=== PATIENT | female | born 1975 | race Caucasian/White ===

== ENCOUNTER 2019-06-01 06:45 | Emergency (ER) | payer MEDICAID, SELFPAY ==
[2019-06-01 06:47] VITALS: BP 135/85; PULSE 84; RESP 20; TEMP 36.8; O2SAT 99; BMI 30.1
--- NOTE | 2019-06-01 07:14 | ED.VISSUMM ---
- ER Visit Summary Date of Service: 06/01/19 Chief Complaint: Bilateral hip and leg pain History of Present Illness: The patient is a 43 F history of chronic lower extremity pain bilaterally. She states is been ongoing for the last 10 years. She sees multiple physicians including emergency preparedness manager and painting worker through the [facility]. She denies any falls or trauma. Or any fever. Says she is camping locally. Is gotten little sleep and it causes her pain to exacerbate. This is nothing new or different she has had this for years. She has a pending hip replacement which she says is secondary to osteoarthritis. Physical Examination: Middle-aged woman complaining of pain. Vital signs are stable afebrile. HEENT exam unremarkable. Lungs clear to auscultation. Heart regular rhythm no murmur rate about 85. Abdomen soft and nontender. Patient is moving all 4 extremities. Neurovascularly intact. There is no history of swelling, redness or warmth to her lower extremities. She is able to flex and extend at both hips knees and ankles. She can bear weight. There is no signs of a septic joints or acute trauma. She has palpable DP pulses. Dorsi and plantarflexion is intact. Test Results: None Emergency Department Course and Treatment: Patient is requesting Dilaudid. She sees pain management. I explained to her this is not her typical course of treating chronic pain in this emergency department. She will be given 2 [place] here for pain. And follow-up with her specialist. Treatment Plan: She has Mobic and Lyrica for pain. Otherwise follow-up with her physicians. Disposition: Discharge Impression: Acute on chronic lower extremity pain History of osteoarthritis History of chronic pain This note was generated with [employer] dictation software. It may contain incorrect words, spelling, and punctuation that were not noted in review of the chart prior to signing
--- NOTE | 2019-06-01 07:16 | ED.DEP ---
ED Disposition - Plan for ED Patient: Disposition: Home or Assisted Living Instructions: ED Chronic Pain Additional Instructions: Continue your Mobic and Lyrica. Follow-up with your pain management doctor.
[2019-06-01] MEDS: HYDROcodone Bitartrate/Apap 5/325 Tablet PO (07:23)
== END 2019-06-01 08:05 | disposition home or self-care (01) ==
LOC: ED 07:21
PROVIDERS: Emergency Provider Emergency Medicine
DX: M79.605 Pain in left leg (principal); M79.604 Pain in right leg; G89.29 Other chronic pain; M19.90 Unspecified osteoarthritis, unspecified site; Z79.899 Other long term (current) drug therapy
CPT/HCPCS: 99283

== ENCOUNTER 2023-02-12 17:35 | Emergency (ER) | payer OTHER, MEDICAID, SELFPAY ==
[2023-02-12 17:36] VITALS: BP 132/90; PULSE 67; RESP 16; TEMP 36.6; O2SAT 100; BMI 35.9
--- NOTE | 2023-02-12 18:05 | RAD_ITS ---
STUDY: X-RAY - LEFT FOOT CLINICAL: Female, 47 years old. injury TECHNIQUE: 3 view(s) of the foot. COMPARISON: None. FINDINGS: Large plantar spur, otherwise negative talus, calcaneus, and tarsal bones. Normal visualized subtalar, talonavicular, calcaneocuboid, tarsal and tarsometatarsal articulations. Normal metatarsi. Normal metatarsophalangeal joint of the great toe. Normal tibial and fibular sesamoid bones. Normal interphalangeal joint of the great toe. Normal phalanges of the great toe. Normal second through fifth metatarsophalangeal joints. Normal interphalangeal joints and phalanges of the lesser toes. The soft tissue structures are unremarkable. There is no demonstrated fracture. RAD/Foot min 3 Views IMPRESSION: No definite acute or significant abnormality seen. Electronically Signed: Lowell Estrada MD at 18:22 EDT ,
--- NOTE | 2023-02-12 18:08 | ED.VIS.LOWEX ---
HPI History of Present Illness Chief Complaint: Lower Extremity Injury Informant: patient Narrative Narrative: Reports worsening swelling pain left foot this morning. Had a fall 3 days ago while coming off the porch. No head injuries. Reports went to [facility] with x-rays that were negative states was put on tramadol that is not helping. Denies new injuries. [facility] Medical History Brain aneurysm Hypertension Lupus Home Medications hydrocodone-acetaminophen 5-325mg 5mg-325mg 1 tab PO Q6H PRN PRN Pain 3 days #10 TABLETS 02/12/23 [Rx Last Taken Unknown] ibuprofen 600 mg tablet 600 mg PO Q6H PRN PRN pain #20 TABLETS 02/12/23 [Rx Last Taken Unknown] losartan 50 mg tablet 50 mg PO DAILY 02/12/23 [History Last Taken Unknown] magnesium 200 mg tablet 200 mg PO DAILY 02/12/23 [History Last Taken Unknown] pregabalin 150 mg capsule 150 mg PO BID 02/12/23 [History Last Taken Unknown] sertraline 100 mg tablet 200 mg PO DAILY 02/12/23 [History Last Taken Unknown] Allergy/AdvReac Type Severity Reaction Status Date / Time erythromycin base Allergy Anaphylaxis Verified 02/12/23 17:35 Sulfa (Sulfonamide Allergy Anaphylaxis Verified 02/12/23 17:35 Antibiotics) Surgical History S/P hip replacement Social History Smoking Status: Current every day smoker tobacco type: cigarettes alcohol intake: never substance use type: does not use caffeine: Yes what type of physical activity do you participate in: none seatbelt use: always do you feel safe at home: Yes ROS ROS ED Constitutional Constitutional ED: Denies chills, fever(s) or sweats Eyes Eyes: Denies change in vision ENT ENT ED: Denies dysphagia or sore throat Cardiovascular Cardiovascular: Denies chest pain, leg edema, palpitations or racing heartbeat Respiratory/Chest Respiratory/Chest: Denies cough, dyspnea or dyspnea on exertion Gastrointestinal Gastrointestinal: Denies abdominal pain, diarrhea, nausea or vomiting Genitourinary Genitourinary ED: Denies dysuria, hematuria or urinary frequency Musculoskeletal Musculoskeletal: Reports extremity pain; Denies back pain or neck pain Integumentary Denies rash or wounds Neurologic Neurologic: Denies headache(s), paresthesias or weakness EXAM Physical Exam Const Vital Signs: 02/12/23 17:36 Temperature 97.8 F Temperature Source Temporal Pulse Rate 67 Respiratory Rate 16 Blood Pressure 132/90 H Blood Pressure Mean 104 Pulse Ox 100 Oxygen Delivery Method Room Air Positive well nourished and well developed General Appearance ED: well developed and NAD HEENT Reports moist mucous membranes normocephalic and atraumatic Eyes PERRL, EOMs intact bilaterally and conjunctivae normal General Eye ED: Yes normal appearance of both eyes Neck no lymphadenopathy and supple General: Negative for tenderness Chest Wall Chest: Negative for tenderness Resp normal respiratory effort and normal air movement Effort and Inspection: symmetric chest movement; Negative for respiratory distress Cardio regular rate, regular rhythm and no murmurs Peripheral Pulses: pulses 2+ throughout GI normal to inspection, nondistended, normoactive bowel sounds and non-tender Palpation: Negative for guarding or rebound tenderness present Back/Spine no CVA tenderness and no thoracic nor lumbar tenderness Extremity Extremity Narrative: Left lower extremity: No knee or ankle tenderness there is tenderness lateral midfoot with swelling. Skin intact. Neuro vas intact distally. General Extremety ED: Negative for edema or tenderness General Extremity: Negative for edema Neuro oriented x3 and no sensory deficits noted Sensorium / Orientation: awake and alert Skin no rashes or lesions noted and no wounds MDM MDM MDM Narrative Medical decision making narrative: Interventions / MDM: Differential diagnosis: Left foot sprain, left foot fracture Diagnosis considered but do not suspect: N/A My EKG interpretation: N/A Imaging independently reviewed and interpreted by myself: Left foot x-ray 3 views: No fracture External documents reviewed: N/A Test considered but not ordered:N/A ED course: Patient for increasing swelling today from injury 3 days ago. Unable to see imaging from outside facility however new symptoms therefore reimaging was obtained and negative. She was treated with hydrocodone in the ED. OARRS report no 6 tabs of tramadol. There is no overlap. Should be written for ibuprofen and short course hydrocodone use as needed. Marco Antonio wrap provided. She still has her postop shoe and crutches. She will follow-up with her PCP for outpatient evaluation and follow-up. All questions were answered. Re-evaluation: stable Disposition discussed with patient/family/significant other: Patient Case discussed with consulting clinician: N/A Radiography Diagnostic Testing: Clinical Impression(s) from Imaging Studies Foot X-Ray 02/12/23 18:05 IMPRESSION: No definite acute or significant abnormality seen. Electronically Signed: Lowell Estrada MD at 18:22 EDT , Discharge Plan Triage Chief Complaint: Lower Extremity Injury ED Provider: Janak Willis Dx/Rx/DC Orders Clinical Impression: Sprain of left foot, Left foot pain Instructions: ED Foot Sprain Prescriptions: New ibuprofen 600 mg tablet 600 mg PO Q6H PRN PRN (Reason: pain) Qty: 20 0RF hydrocodone-acetaminophen [hydrocodone-acetaminophen] 5-325 mg tablet 1 tab PO Q6H PRN PRN (Reason: Pain) 3 Days Qty: 10 0RF No Action losartan 50 mg tablet 50 mg PO DAILY Label Comments: Take 1 tablet by mouth once daily. sertraline 100 mg tablet 200 mg PO DAILY Label Comments: Take 2 tablets by mouth once daily. magnesium 200 mg Tablet 200 mg PO DAILY pregabalin 150 mg capsule 150 mg PO BID Primary Care Provider: Iron Dao Referrals: Iron Dao MD [Primary Care Provider] - 1 Week if not improving Activity Restrictions/Additional Instructions: Left foot x-ray is negative for any fractures. Use Marco Antonio wrap continue your postop shoe and crutches. Medications as prescribed. Follow-up with your doctor if not improving in 1 week. Disposition Disposition: Home, Self Care Discharge Date/Time: 02/12/23 18:54
[2023-02-12] MEDS: HYDROcodone Bitartrate/Apap 5/325 Tablet PO (18:10)
== END 2023-02-12 18:54 | disposition home or self-care (01) ==
PROVIDERS: Emergency Provider Emergency Medicine; Visit Provider Emergency Medicine
DX: S93.602A Unspecified sprain of left foot, initial encounter (principal); M79.672 Pain in left foot; I10 Essential (primary) hypertension; F17.210 Nicotine dependence, cigarettes, uncomplicated; Z79.899 Other long term (current) drug therapy; W19.XXXA Unspecified fall, initial encounter
CPT/HCPCS: 73630; 99282

== ENCOUNTER 2023-05-21 17:46 | Emergency (ER) | payer OTHER, MEDICAID, SELFPAY ==
[2023-05-21 17:48] VITALS: BP 149/87; PULSE 84; RESP 14; TEMP 36.7; O2SAT 97; BMI 41.4
--- NOTE | 2023-05-21 18:53 | CT_ITS ---
STUDY: CT ABDOMEN AND PELVIS WITHOUT CONTRAST REASON FOR EXAM: Female, 47 years old. Kidney Stone RADIATION DOSAGE (If Supplied By Facility): CTDIvol = ( 23.81 ) mGy, DLP = ( 1314.76 ) mGycm TECHNIQUE: Transaxial images were obtained from the dome of the diaphragm to the symphysis pubis without oral contrast, and without intravenous contrast. Sagittal and coronal images were reconstructed. Individualized dose optimization techniques were used for this CT. COMPARISON: None. FINDINGS: The visualized lung bases are unremarkable. The visualized portions of the heart are within normal limits. There is decreased attenuation of the liver consistent with steatosis. There is hepatomegaly. There is non-visualization of the gallbladder, which may be secondary to either contraction or a prior cholecystectomy. Normal spleen. Normal pancreas. Normal bilateral adrenal glands. There is no acute abnormalities of the kidneys. There is a 3 mm nonobstructing mid right renal stone. There is a 1 mm nonobstructing right lower pole renal stone. There is a punctate nonobstructing stone of the left upper pole. No hydronephrosis. Evaluation of the GI tract is limited by absence of oral contrast. Cannot exclude stomach wall thickening. No dilated loops of bowel or evidence for obstruction. Cannot exclude segmental thickening of the meadows of the small or large bowel. Cannot exclude enteritis or colitis. Moderate diffuse fecal retention. Appendix within normal limits. Normal abdominal aorta. Normal inferior vena cava. Normal retroperitoneum. Evaluation of the pelvis limited by metal artifact from bilateral hip arthroplasties. Grossly normal rectum and bladder. Uterus is absent. Normal abdominal wall. Normal osseous structures. CT/Abdomen/Pelvis without Cont IMPRESSION: Limited as above. Nonobstructing bilateral renal stones. Electronically Signed: Lowell Estrada MD at 20:37 EDT ,
[2023-05-21] MEDS: Ondansetron 4 MG/2 ML Vial IV (19:00)
[2023-05-21] MEDS: Ketorolac 15 MG/ML Vial IV (19:00)
[2023-05-21 19:01] LABS: Bacteria 0 SEEN /hpf (None Seen); Mucous, Urine 0 SEEN /hpf (<or=2+)
[2023-05-21] MEDS: Morphine 4 MG/ML Syringe IV ×2 (19:01→20:21)
[2023-05-21 19:08] LABS: Color, Urine Yellow (Yellow); Glucose, Dipstick Normal (Normal); Ketone-Dipstick 15 mg/dl (Negative); Leukocyte Esterase-Dipstick 100 /ul (Negative); Nitrite-Dipstick Negative (Negative); Occult Blood-Urine 25 /ul (Negative); Protein-Dipstick 30 mg/dl (Negative); Urine Bilirubin Dipstick Negative (Negative); Urine Clarity Sl. Cloudy (Clear); Urine Urobilinogen 1 mg/dl (Normal)
[2023-05-21 19:15] LABS: Anion Gap 7 (5-15); BUN 12 mg/dL (7-18); BUN/Creat Ratio 8.9 RATIO (10-20); Calcium,Total 8.8 mg/dL (8.5-10.1); Chloride 105 mmol/L (98-107); Creatinine, Serum 1.35 mg/dL (0.55-1.02); EST Glomerular Filtration Rate 45 mL/min (>60); Est Glom Filt Rate - Afr Amer 54 mL/min (>60); Estimated Creatinine Clearance 56.31 ml/min; Glucose 82 mg/dL (74-106); Potassium 3.9 mmol/L (3.5-5.1); Sodium Level 139 mmol/L (136-145)
[2023-05-21 19:20] LABS: Amorphous Sediment 1+ PHOS; Red Blood Cells-Urine 0-5 SEEN /hpf (0-5); Squamous Epithelial Cells - UA 10-25 SEEN /hpf (5-10); White Blood Cells 5-10 SEEN /hpf (0-5)
--- NOTE | 2023-05-21 19:22 | EDS_ITS ---
HPI HPI - Female History of Present Illness Chief Complaint: Flank Pain Narrative Narrative: Patient presenting with C and right flank pain. She is concerned she has UTI or kidney stone. She has associated nausea but no vomiting. Pain is sharp and intermittent. Not concern for . Patient recently admitted to the hospital at [facility] and feels that her right ankle is medical with a blood clot. She has some pain in the left forearm. No history of DVT/PE. PFSH [facility] Medical History Brain aneurysm Hypertension Lupus Home Medications
--- NOTE | 2023-05-21 19:22 | ED.VIS.FEGU ---
HPI HPI - Female History of Present Illness Chief Complaint: Flank Pain Narrative Narrative: Patient presenting with C and right flank pain. She is concerned she has UTI or kidney stone. She has associated nausea but no vomiting. Pain is sharp and intermittent. Not concern for . Patient recently admitted to the hospital at [facility] and feels that her right ankle is medical with a blood clot. She has some pain in the left forearm. No history of DVT/PE. PFSH PFSH Medical History Brain aneurysm Hypertension Lupus Home Medications hydrocodone-acetaminophen 5-325mg 5mg-325mg 1 tab PO Q6H PRN PRN Pain 3 days #10 TABLETS 02/12/23 [Rx Last Taken Unknown] ibuprofen 600 mg tablet 600 mg PO Q6H PRN PRN pain #20 TABLETS 02/12/23 [Rx Last Taken Unknown] losartan 50 mg tablet 50 mg PO DAILY 02/12/23 [History Last Taken Unknown] magnesium 200 mg tablet 200 mg PO DAILY 02/12/23 [History Last Taken Unknown] pregabalin 150 mg capsule 150 mg PO BID 02/12/23 [History Last Taken Unknown] sertraline 100 mg tablet 200 mg PO DAILY 02/12/23 [History Last Taken Unknown] Allergy/AdvReac Type Severity Reaction Status Date / Time erythromycin base Allergy Anaphylaxis Verified 05/21/23 17:47 Sulfa (Sulfonamide Allergy Anaphylaxis Verified 05/21/23 17:47 Antibiotics) Surgical History History of hysterectomy S/P hip replacement Social History Smoking Status: Former smoker alcohol intake: never substance use type: does not use caffeine: Yes what type of physical activity do you participate in: none seatbelt use: always do you feel safe at home: Yes ROS ROS ED Constitutional Constitutional ED: Denies chills, fever(s) or sweats Eyes Eyes: Denies blurry vision or change in vision ENT ENT ED: Denies ear pain, rhinorrhea or sore throat Cardiovascular Cardiovascular: Denies chest pain, palpitations or racing heartbeat Respiratory/Chest Respiratory/Chest: Denies cough, dyspnea or sputum Gastrointestinal Gastrointestinal: Reports abdominal pain; Denies constipation, diarrhea or vomiting Genitourinary Genitourinary ED: Reports dysuria and urinary frequency; Denies hematuria Musculoskeletal Musculoskeletal: Denies arthralgias, myalgias or neck pain Integumentary Reports other Details: Bruising left distal forearm on the volar surface ; Denies abscess, Abrasions or rash Neurologic Neurologic: Denies headache(s), paresthesias or weakness Psychiatric Psychiatric: Denies anxiety, depression, suicidal ideation or suicidal thoughts Endocrine Endocrinology: Denies polydipsia or polyuria EXAM Physical Exam Const Vital Signs: 05/21/23 17:48 05/21/23 20:10 05/21/23 21:02 Temperature 98.1 F Temperature Source Temporal Pulse Rate 84 68 61 Respiratory Rate 14 18 18 Blood Pressure 149/87 H 124/69 H 130/69 H Blood Pressure Mean 107 87 Pulse Ox 97 98 96 Oxygen Delivery Method Room Air Room Air Positive well nourished General Appearance ED: NAD HEENT Reports moist mucous membranes Eyes PERRL and EOMs intact bilaterally Chest Wall inspection of chest normal Resp normal respiratory effort and clear to auscultation bilaterally Cardio regular rate and regular rhythm GI normal to inspection, nondistended, normoactive bowel sounds Back/Spine no CVA tenderness Extremity Extremity Narrative: There are some bruising and swelling noted over the distal forearm on the volar surface. No obvious cords palpated. It is edematous and mildly tender. Neuro oriented x3 Sensorium / Orientation: alert Motor Exam: strength 5/5 throughout Psych mental status grossly normal Skin Skin Narrative: As described above MDM MDM MDM Narrative Medical decision making narrative: Patient presenting with flank pain. Differential includes UTI, kidney stone, pyelonephritis, colitis, lumbar strain. She also wants her left forearm assessed. There are some bruising and swelling over the left distal forearm but the IV was in the left AC. Counseled her we do not have anybody that can do this DVT study today in the hospital and I offered to give her outpatient follow-up and she declines. I did obtain a CBC and BMP to assess white blood cell count, hemoglobin and platelets as well as renal function electrolytes. Patient medicated with morphine, Zofran, Toradol. Urinalysis was obtained to assess for UTI or occult blood. CT of the abdomen pelvis without contrast will be obtained to assess for kidney stone versus pyelonephritis. Urinalysis negative for infection. CBC and BMP unremarkable with exception of a creatinine 1.[address] of the abdomen pelvis without contrast was obtained to rule out kidney stone this was negative except for constipation. Patient counseled on findings. Patient to take MiraLAX at home. I did again offer duplex of the upper extremity tomorrow and she declines. Impression: 1. Left upper extremity edema 2. Right flank pain 3. Constipation 4. Urinary frequency Lab Data Attestation: I reviewed the patient's lab results. Labs: Laboratory Results - last 24 hr 05/21/23 18:15 WBC 10.2 RBC 4.29 Hgb 13.6 Hct 41.2 MCV 96.0 MCH 31.7 MCHC 33.0 RDW Std Deviation 49.2 H RDW Coeff of Vera 14.1 Plt Count 291 MPV 10.0 Immature Gran % (Auto) 0.400 Neut % (Auto) 66.3 Lymph % (Auto) 22.3 [place] % (Auto) 8.5 Eos % (Auto) 2.0 Baso % (Auto) 0.5 Absolute Neuts (auto) 6.8 Absolute Lymphs (auto) 2.28 Nucleated RBC % 0 Sodium 139 Potassium 3.9 Chloride 105 Carbon Dioxide 27.0 Anion Gap 7 BUN 12 Creatinine 1.35 H Estim Creat Clear Calc 56.31 Est GFR (MDRD) Af Amer 54 L Est GFR (MDRD) Non-Af 45 L BUN/Creatinine Ratio 8.9 L Glucose 82 Calcium 8.8 Urine Color Yellow Urine Clarity Sl. Cloudy Urine pH 7.0 Ur Specific [place] 1.010 Urine Protein 30 H Urine Glucose (UA) Normal Urine Ketones 15 H Urine Occult Blood 25 H Urine Nitrite Negative Urine Bilirubin Negative Urine Urobilinogen 1 H Ur Leukocyte Esterase 100 H Urine RBC 0-5 SEEN Urine WBC 5-10 SEEN Ur Squamous Epith Cells 10-25 SEEN Amorphous Sediment 1+ PHOS Urine Bacteria 0 SEEN Urine Mucus 0 SEEN Radiography Diagnostic Testing: Clinical Impression(s) from Imaging Studies Abdomen/Pelvis CT 05/21/23 18:53 IMPRESSION: Limited as above. Nonobstructing bilateral renal stones. Electronically Signed: Lowell Estrada MD at 20:37 EDT , Discharge Plan Triage Chief Complaint: Flank Pain ED Provider: Randal Barrientos Dx/Rx/DC Orders Instructions: ED Constipation (Adult), ED Flank Pain, Uncertain Cause Prescriptions: No Action losartan 50 mg tablet 50 mg PO DAILY Patient Comments: Take 1 tablet by mouth once daily. sertraline 100 mg tablet 200 mg PO DAILY Patient Comments: Take 2 tablets by mouth once daily. magnesium 200 mg Tablet 200 mg PO DAILY pregabalin 150 mg capsule 150 mg PO BID ibuprofen 600 mg tablet 600 mg PO Q6H PRN PRN (Reason: pain) Qty: 20 0RF hydrocodone-acetaminophen [hydrocodone-acetaminophen] 5-325 mg tablet 1 tab PO Q6H PRN PRN (Reason: Pain) 3 Days Qty: 10 0RF Primary Care Provider: Iron Dao Referrals: Iron Dao MD [Primary Care Provider] - Disposition Disposition: Home, Self Care Discharge Date/Time: 05/21/23 21:10
[2023-05-21 19:27] LABS: Absolute Lymphocyte Count 2.28 X10^3/uL (0.83-4.51); Absolute Neutrophil Count 6.8 X10^3/uL (2.0-7.7); Basophil# 0.05 X10^3/uL; Basophil% 0.5 % (0-1); Hematocrit 41.2 % (37-47); Hemoglobin 13.6 g/dL (12.0-15.0); Lymphocyte # 2.28 X10^3/ul (0.83-4.51); Lymphocyte % 22.3 % (19-41); Mean Corpuscular Hgb 31.7 pg (27.0-32.0); Monocyte# 0.87 X10^3/uL; Monocyte% 8.5 % (0-10); NRBC Flagged by Analyzer 0 % (0-5); Neutrophil % 66.3 % (47-70); Platelet Count 291 K/mm3 (150-450); RBC Distribution Width CV 14.1 % (11.6-14.6); RBC Distribution Width SD 49.2 fl (35.1-43.9); Red Blood Count 4.29 M/mm3 (4.2-5.4); White Blood Count 10.2 K/mm3 (4.4-11.0)
[2023-05-21 20:10] VITALS: BP 124/69; PULSE 68; RESP 18; O2SAT 98
[2023-05-21] MEDS: 0.9% Normal Saline 1,000 ML 999 ML IV (20:54)
[2023-05-21 21:02] VITALS: BP 130/69; PULSE 61; RESP 18; O2SAT 96
== END 2023-05-21 21:10 | disposition home or self-care (01) ==
PROVIDERS: Emergency Provider Student in an Organized Health Care Education/Training Program; Visit Provider Student in an Organized Health Care Education/Training Program
DX: M79.89 Other specified soft tissue disorders (principal); R10.9 Unspecified abdominal pain; K59.00 Constipation, unspecified; R35.0 Frequency of micturition; Z87.891 Personal history of nicotine dependence
CPT/HCPCS: 74176; 80048; 81001; 85025; 96374; 96375; 96376; 99282; J7030; J7050; A4216; J2405

== ENCOUNTER 2023-12-04 19:01 | Emergency (ER) | payer OTHER, SELFPAY ==
[2023-12-04 19:02] VITALS: BP 169/96; PULSE 111; RESP 18; TEMP 35.5; O2SAT 98; BMI 42.2
--- NOTE | 2023-12-04 19:15 | EKG12_ITS ---
Test Reason : CP Blood Pressure : / mmHG Vent. Rate : 093 BPM Atrial Rate : 093 BPM P-R Int : 142 ms QRS Dur : 078 ms QT Int : 354 ms P-R-T Axes : 023 010 043 degrees QTc Int : 440 ms Sinus rhythm with PAC's Otherwise normal ECG Confirmed by Jordon Hurd ([id number]), mapping editor MADY SANTIAGO ([id number]) on 12/05/2023 2:50:32 PM Referred By: ABRAHAM Confirmed By:Jordon Hurd
--- NOTE | 2023-12-04 19:18 | EX.ED.DYSGE1 ---
HPI History of Present Illness Chief Complaint: Palpitations Narrative Narrative: 48-year-old female past medical history of hypertension, recently wore a Holter monitor, presents with fluttering of her heart, strange feeling in her chest, and lightheadedness/near syncope. She states she usually feels fluttering in her chest and that is why she wore a Holter monitor, but did not follow-up with her edge stripper yet. She states that usually only lasts a minute or so, then goes away. However, this episode has been ongoing for the last 3 hours. She told the triage nurse that she had chest pain radiating to her right shoulder/discomfort. She tells me on examination that she is feeling more lightheaded and weak. Of note, her fianc? did state that she donated plasma twice in the last few days, once the other day, and once this morning. It is not necessarily worse with standing, but she feels weak and lightheaded with these heart palpitations. [facility] Medical History Brain aneurysm Hypertension Lupus Home Medications losartan 50 mg tablet 50 mg PO DAILY 02/12/23 [History Last Taken Unknown] magnesium 200 mg tablet 200 mg PO DAILY 02/12/23 [History Last Taken Unknown] pregabalin 150 mg capsule 150 mg PO BID 02/12/23 [History Last Taken Unknown] sertraline 100 mg tablet 200 mg PO DAILY 02/12/23 [History Last Taken Unknown] Allergy/AdvReac Type Severity Reaction Status Date / Time erythromycin base Allergy Anaphylaxis Verified 12/04/23 19:02 Sulfa (Sulfonamide Allergy Anaphylaxis Verified 12/04/23 19:02 Antibiotics) Surgical History History of hysterectomy S/P hip replacement Social History Smoking Status: Current every day smoker tobacco type: cigarettes alcohol intake: never substance use type: does not use caffeine: Yes what type of physical activity do you participate in: none seatbelt use: always do you feel safe at home: Yes ROS ROS ED ROS Narrative Constitutional: No fever, no chills. HEENT: No sore throat. No neck pain. No loss of vision. No rhinorrhea. Cardiovascular: Positive chest discomfort/chest pain. Positive palpitations. No pedal edema. Respiratory: No cough, no shortness of breath. Abdominal: No abdominal pain. No nausea. No vomiting. Genitourinary: No dysuria. No hematuria. Musculoskeletal: No myalgias. No arthralgias. Neurologic: No headaches. No dizziness. Positive near syncope/lightheadedness. Skin: No rash. No change in color. Psychiatric: No depression. No anxiety. EXAM Physical Exam Narrative Exam Narrative: Afebrile. Vital signs noted. HEENT: Normocephalic. Atraumatic. PERRL, EOMI. Neck soft and supple. No point tenderness or step off. Cardiovascular: Regular rate and rhythm with occasional extrasystole. No murmurs, rubs, or gallops appreciated. Respiratory: No tachypnea. Lungs clear to auscultation bilaterally. Gastrointestinal: Abdomen soft, nontender, with normoactive bowel sounds. No rebound or guarding. Neurological: Awake. Alert. Nonfocal, nonlateralizing. Skin: No rash. Normal color. No pallor. Musculoskeletal: No pedal edema. Full range of motion extremities. Const Vital Signs: 12/04/23 19:02 12/04/23 19:33 12/04/23 19:37 Temperature 96 F L Temperature Source Temporal Pulse Rate 111 H Pulse Rate [Lying] 75 Pulse Rate [Sitting (for 1 minute prior to obtaining)] 110 H Pulse Rate [Standing (for 1 minute prior to obtaining)] 115 H Respiratory Rate 18 Blood Pressure 169/96 H Blood Pressure [Lying] 124/71 H Blood Pressure [Sitting (for 1 minute prior to obtaining)] 133/76 H Blood Pressure [Standing (for 1 minute prior to obtaining)] 150/105 H Blood Pressure Mean 120 Blood Pressure Mean [Lying] 88 Blood Pressure Mean [Sitting (for 1 minute prior to obtaining)] 95 Blood Pressure Mean [Standing (for 1 minute prior to obtaining)] 120 Pulse Ox 98 99 Oxygen Delivery Method Room Air Room Air 12/04/23 20:55 Temperature Temperature Source Pulse Rate 75 Pulse Rate [Lying] Pulse Rate [Sitting (for 1 minute prior to obtaining)] Pulse Rate [Standing (for 1 minute prior to obtaining)] Respiratory Rate 19 H Blood Pressure 133/69 H Blood Pressure [Lying] Blood Pressure [Sitting (for 1 minute prior to obtaining)] Blood Pressure [Standing (for 1 minute prior to obtaining)] Blood Pressure Mean 90 Blood Pressure Mean [Lying] Blood Pressure Mean [Sitting (for 1 minute prior to obtaining)] Blood Pressure Mean [Standing (for 1 minute prior to obtaining)] Pulse Ox 96 Oxygen Delivery Method Room Air MDM MDM MDM Narrative Medical decision making narrative: In the differential diagnosis for her palpitations would be sinus tachycardia versus SVT versus atrial fibrillation. For her lightheadedness, she may have intravascular volume depletion from plasma donation versus orthostatic hypotension versus dehydration. EKG was obtained and interpreted by myself independently which demonstrates sinus rhythm with sinus arrhythmia which is also in the differential for palpitations. I reviewed her orthostatics and she had an increase of her pulse from the 70s to as high as 115 with standing. I do feel that she has intravascular volume depletion. She was bolused normal saline 1 L intravenously. I reviewed her laboratory work and she has an elevated white count of 14.7 which I think is nonspecific, hemoglobin slightly hemoconcentrated at 15.5 with hematocrit 46.0, platelet count normal at 333. BUN is 11 and creatinine slightly elevated at 1.22 but it has been elevated in the past, glucose normal at 99 with a normal anion gap of 7, LFTs are grossly unremarkable. Initial high-sensitivity troponin is 8. Chest x-ray in 1 view interpreted by myself independently shows no evidence of pneumothorax or pneumonia. I do not feel antibiotics are indicated. Additionally, I reviewed the radiology report which confirms my independent interpretation. At this point in time, after a bolus of IV fluid she feels improved. She does not want to wait for her second troponin. She would like to sign out AGAINST MEDICAL ADVICE. She was told of the risk of myocardial infarction/heart attack, stroke, permanent disability, and without waiting for her troponin, she acknowledges an understanding and still would like to sign out AGAINST MEDICAL ADVICE. I feel she has the capacity to make this decision and her fianc? is present as well. She signed the AMA forms. She was told she could change her mind at any time and return to the emergency department. Disposition is signed out AGAINST MEDICAL ADVICE. Patient was in stable condition. History & Record Review Discussion w/independent historian: Patient Lab Data Attestation: I reviewed the patient's lab results. Labs: Laboratory Results - last 24 hr 12/04/23 19:17 WBC 14.7 H RBC 4.94 Hgb 15.5 H Hct 46.0 MCV 93.1 MCH 31.4 MCHC 33.7 RDW Std Deviation 47.2 H RDW Coeff of Vera 13.9 Plt Count 333 MPV 9.8 Immature Gran % (Auto) 0.500 Neut % (Auto) 64.8 Lymph % (Auto) 26.1 Keith % (Auto) 6.5 Eos % (Auto) 1.6 Baso % (Auto) 0.5 Absolute Neuts (auto) 9.5 H Absolute Lymphs (auto) 3.84 Nucleated RBC % 0 Sodium 139 Potassium 3.7 Chloride 107 Carbon Dioxide 25.0 Anion Gap 7 BUN 11 Creatinine 1.22 H Estim Creat Clear Calc 84.99 Est GFR (MDRD) Af Amer 61 Est GFR (MDRD) Non-Af 50 L BUN/Creatinine Ratio 9.0 L Glucose 99 Calcium 9.2 Total Bilirubin 0.50 AST 18 ALT 41 Alkaline Phosphatase 91 Troponin I High Sens 8 Total Protein 6.7 Albumin 3.6 Globulin 3.1 Albumin/Globulin Ratio 1.2 Radiography Diagnostic Testing: Clinical Impression(s) from Imaging Studies Chest X-Ray 12/04/23 19:30 IMPRESSION: Diminished inspiratory effort. No acute cardiopulmonary pathology Electronically Signed: Julio César Guzman MD at 20:23 EST Reading Location ID and State: [facility] / [place] Tel , Service support , Discharge Plan Triage Chief Complaint: Palpitations ED Provider: Nick Renner Dx/Rx/DC Orders Clinical Impression: Left against medical advice, Palpitations, Intravascular volume depletion, Chest pain Instructions: ED Chest Pain, Uncertain Cause, ED Dehydration (Adult), ED Palpitations Prescriptions: No Action losartan 50 mg tablet 50 mg PO DAILY Patient Comments: Take 1 tablet by mouth once daily. sertraline 100 mg tablet 200 mg PO DAILY Patient Comments: Take 2 tablets by mouth once daily. magnesium 200 mg Tablet 200 mg PO DAILY pregabalin 150 mg capsule 150 mg PO BID Primary Care Provider: Iron Dao Referrals: Iron Dao MD [Primary Care Provider] - 1-2 Days if not improving Disposition Disposition: Against Medical Advice
[2023-12-04 19:26] LABS: Absolute Lymphocyte Count 3.84 X10^3/uL (0.83-4.51); Absolute Neutrophil Count 9.5 X10^3/uL (2.0-7.7); Basophil# 0.07 X10^3/uL; Basophil% 0.5 % (0-1); Eosinophil# 0.23 X10^3/uL; Eosinophils% 1.6 % (0-5); Hemoglobin 15.5 g/dL (12.0-15.0); Lymphocyte # 3.84 X10^3/ul (0.83-4.51); Lymphocyte % 26.1 % (19-41); Mean Corp Hgb Conc 33.7 g/dL (32-36); Mean Corpuscular Hgb 31.4 pg (27.0-32.0); Mean Corpuscular Volume 93.1 fL (81-99); Mean Platelet Vol. 9.8 fl (6.2-12.0); Monocyte# 0.96 X10^3/uL; Monocyte% 6.5 % (0-10); NRBC Flagged by Analyzer 0 % (0-5); Neutrophil # 9.52 X10^3/uL (2.7-7.7); Neutrophil % 64.8 % (47-70); Platelet Count 333 K/mm3 (150-450); RBC Distribution Width CV 13.9 % (11.6-14.6); RBC Distribution Width SD 47.2 fl (35.1-43.9); Red Blood Count 4.94 M/mm3 (4.2-5.4); White Blood Count 14.7 K/mm3 (4.4-11.0)
--- NOTE | 2023-12-04 19:30 | RAD_ITS ---
STUDY: X-RAY CHEST REASON FOR EXAM: Female, 48 years old. chest pain TECHNIQUE: AP portable COMPARISON: None. FINDINGS: There is less than optimal inspiratory effort however the lungs are clear. There is no demonstrated pleural abnormality. Normal size heart. Normal mediastinum and [place]. Normal visualized pulmonary arteries. Normal visualized aortic arch and descending thoracic aorta. Dorsal spine demonstrates degenerative changes. Normal visualized ribs, clavicles, and shoulders. There is no demonstrated abnormality of the visualized soft tissue structures of the upper abdomen. RAD/Chest 1 View (Portable) IMPRESSION: Diminished inspiratory effort. No acute cardiopulmonary pathology Electronically Signed: Julio César Guzman MD at 20:23 EST ,
[2023-12-04 19:33] VITALS: O2SAT 99
[2023-12-04 19:37] VITALS: BP 124/71; BP 133/76; BP 150/105; PULSE 110; PULSE 115; PULSE 75
[2023-12-04] MEDS: 0.9% Normal Saline (1000mL) 1,000 ML 1000 ML IV (19:43)
[2023-12-04 19:44] LABS: ALB/GLOB Ratio 1.2 RATIO (0.9-2.4); AST(SGOT) 18 U/L (15-37); Alanine Aminotransfer ALT/SGPT 41 U/L (13-56); Albumin, Serum 3.6 g/dL (3.2-5.0); Alkaline Phosphatase 91 U/L (45-117); Anion Gap 7 (5-15); BUN 11 mg/dL (7-18); Calcium,Total 9.2 mg/dL (8.5-10.1); Chloride 107 mmol/L (98-107); Creatinine, Serum 1.22 mg/dL (0.55-1.02); EST Glomerular Filtration Rate 50 mL/min (>60); Est Glom Filt Rate - Afr Amer 61 mL/min (>60); Estimated Creatinine Clearance 84.99 ml/min; Globulin 3.1 g/dL (2.2-4.2); Glucose 99 mg/dL (74-106); Potassium 3.7 mmol/L (3.5-5.1); Protein, Total 6.7 g/dL (6.4-8.2); Sodium Level 139 mmol/L (136-145); Troponin-I HS (w/2H Reflex) 8 pg/mL (3.0-54.0)
[2023-12-04 20:55] VITALS: BP 133/69; PULSE 75; RESP 19; O2SAT 96
[2023-12-04 21:23] LABS: Reflex Troponin-HS? (from REC) Y
== END 2023-12-04 21:01 | disposition left against medical advice (07) ==
PROVIDERS: Emergency Provider Emergency Medicine; Visit Provider Emergency Medicine
DX: Z53.29 Procedure and treatment not carried out because of patient's decision for other reasons (principal); R00.2 Palpitations; E86.9 Volume depletion, unspecified; R07.9 Chest pain, unspecified; F17.210 Nicotine dependence, cigarettes, uncomplicated; Z79.899 Other long term (current) drug therapy
CPT/HCPCS: 71045; 80053; 84484; 85025; 93005; 99285; A4216

== ENCOUNTER → 2025-06-15 | Outpatient (CLI) | payer OTHER, SELFPAY ==
--- NOTE | 2025-06-15 16:26 | RAD_ITS ---
PROCEDURE: CERV SPINE 4 OR 5 VIEWS 06/15/2025 REASON FOR EXAM: NECK PAIN TECHNIQUE: [facility] Procedure: CERV SPINE 4 OR 5 VIEWS COMPARISON: None. FINDINGS: No evidence of acute fracture or subluxation. The odontoid is intact. Straightening of the cervical lordosis may be positional in nature or related to muscle spasm. Mild multilevel spondylotic changes with varying degrees of disc space narrowing, anterior endplate osteophytosis, uncovertebral spurring and hypertrophic facet arthropathy. No prevertebral soft tissue swelling. RAD/Cerv Spine 4 or 5 Views IMPRESSION: No evidence of fracture or malalignment. Mild multilevel spondylotic changes, as described. Reading Location: [facility]
== END | disposition home or self-care (01) ==
PROVIDERS: Referring Provider Physician Assistant; Visit Provider Physician Assistant
DX: M54.2 Cervicalgia (principal)
CPT/HCPCS: 72050